=== PATIENT | male | born 1970 | race African-American/Black ===

== ENCOUNTER 2019-08-24 09:43 | Inpatient (IN) | payer MEDICARE ==
[~2019-08-24] VITALS: Ht 193 cm; Wt 73.5 kg
[2019-08-24 10:13] LABS: HEMATOCRIT 37.3 % (42.0-54.0); HEMOGLOBIN 12.3 g/dL (13.5-17.5); LYMPHOCYTES 28.7 % (15-50); MCH 31.1 pg (26.0-34.0); MCV 94.4 fL (80.0-100.0); MEAN PLATELET VOLUME 9.4 fL (7.4-10.4); NEUTROPHILS 66.5 % (40-80); PLATELET COUNT 193 10x3/uL (130-400); RBC 3.95 10x6/uL (4.20-6.10); RDW 12.2 % (11.5-14.5); WBC 6.2 10x3/uL (4.8-10.8)
[2019-08-24 10:19] LABS: ALBUMIN 4.6 g/dL (3.4-5.0); ANION GAP 18.9 mmol/L (8-16); BILIRUBIN - TOTAL 0.45 mg/dL (0.2-1.3); CALCIUM 8.4 mg/dL (8.5-10.1); CARBON DIOXIDE 26.3 mmol/L (21.0-32.0); CREATININE - SERUM 19.8 mg/dL (0.6-1.3); MAGNESIUM - SERUM 2.1 mg/dL (1.8-2.4); PHOSPHOROUS 6.4 mg/dL (2.5-4.9); PROTEIN - SERUM 8.3 g/dL (6.4-8.2)
[2019-08-24 10:22] LABS: POTASSIUM - SERUM 7.2 mmol/L (3.5-5.1)
[2019-08-24 10:37] LABS: APTT 34.3 SECONDS (22.8-39.4); INR 0.98 (0.85-1.17); PROTIME 12.9 SECONDS (11.6-15.0)
[2019-08-24 12:18] VITALS: BP 141/97
--- NOTE | 2019-08-24 13:14 | NUR ---
CALCIUM GLUCONATE COMPLETED @ 1245 IV LINE FLUSHED.
[2019-08-24 16:44] LABS: ANION GAP 15.3 mmol/L (8-16); CARBON DIOXIDE 28.3 mmol/L (21.0-32.0)
[2019-08-24 16:49] VITALS: BP 123/90; Ht 193 cm; Wt 73.5 kg
[2019-08-24 16:51] LABS: CREATININE - SERUM 10.7 mg/dL (0.6-1.3); POTASSIUM - SERUM 3.6 mmol/L (3.5-5.1)
--- NOTE | 2019-08-24 16:53 | NUR ---
PATIENT REFUSED TO WEAR TELEMENTY - STATES "I WANT THE OLD FASHION ONE THAT STAYS IN THE ROOM, THIS IS A TRACKING DEVICE".
--- NOTE | 2019-08-24 17:18 | NUR ---
CALL TO [facility] FOR DIET ORDERS. RECEIVED NEW ORDERS. RIGHT INGUINAL HERNIA SEEN. PATIENT REPORTS THAT IT HAS GONE DONE.
--- NOTE | 2019-08-24 17:31 | NUR ---
PATIENT IN [facility]1983 AND WANTS TO BE DISCHARGED. CALL TO ANITA JERNIGAN WHO STATES THAT SHE WILL CALL DR ODONNELL AND CALL ME BACK.
--- NOTE | 2019-08-24 17:42 | NUR ---
[facility] TO CALL BACK AND STATE THAT FROM THEIR STANDPOINT HE CAN GO AMA. PAGE INTO [facility] FOR ORDERS.
--- NOTE | 2019-08-24 18:08 | NUR ---
FPATIENT IS ADAMENT ABOUT LEAVING AND WOULD NOT GO BACK TO THE ROOM FOR SALINE LOCK TO BE REMOVED. SECRUITY IS CALLED AND TRIED TO ASSIST WITH GETTING PATIENT BACK TO ROOM. HE WOULD NOT SO SECRUTY HAD TO TAKE HIM DOWN AND PLACE CUFFS ON HIM. SALINE LOCK REMOVED AND COBAN APPLIED. HE WOULD NOT SIGN AMA PAPER. WE TRIED NUMEROUS TIMES TO ESCORT HIM BACK TO ROOM FROM [facility] AND OURS AND HE WOULD NOT COMPLY. [employer] IS HERE ON FLOOR AT THIS TIME.
--- NOTE | 2019-08-24 18:51 | NUR ---
PTS BROTHER CALLED TO SPEAK TO ME AND FIND OUT ABOUT HIS BROTHERS LEAVING AMA. EXPLAINED TO BROTHER ABOUT OCCURENCE. BROTHER UNDERSTANDS INCIDENCE AND STATED HIS BROTHER IS CRAZY. HE THANK US FOR OUR CARE TO HIS BROTHER.
== END 2019-08-24 18:00 | disposition left against medical advice (07) | DRG 393 ==
LOC: D.ER 09:43 → D.M2 11:11 → D.ER 13:15 → D.M2 18:00
PROVIDERS: Family Medicine; ADMIT Family Medicine; ATTEND Family Medicine
DX: K40.90 Unilateral inguinal hernia, without obstruction or gangrene, not specified as recurrent (principal); N18.6 End stage renal disease; I13.2 Hypertensive heart and chronic kidney disease with heart failure and with stage 5 chronic kidney disease, or end stage renal disease; E87.5 Hyperkalemia; I10 Essential (primary) hypertension; E78.5 Hyperlipidemia, unspecified; I50.9 Heart failure, unspecified; Z99.2 Dependence on renal dialysis